=== PATIENT | female | born 1945 | race Caucasian/White ===

== ENCOUNTER 2021-05-08 23:17 | Emergency (ER) | payer MEDICARE, OTHER ==
[~2021-05-08] VITALS: Ht 172.7 cm; Wt 117.9 kg
[~2021-05-08 23:17] MED LIST: BONIVA150 MG PO; LASIX20 MG PO; LOSARTAN POTAS100 MG PO; METOPROLOL SUCC50 MG PO; POTASSIUM CHLO10 MEQ PO; TRIAMTERENE-HC1 EAC1 PO; TYLENOL EXTRA500 MG PO
[2021-05-08] MEDS ORDERED: METOPROLOL SUC100 MG PO (23:33)
[2021-05-08] MEDS ORDERED: FUROSEMIDE20 MG PO (23:33)
[2021-05-08] MEDS ORDERED: SPIRONOLACTONE25 MG PO (23:34)
[2021-05-08] MEDS ORDERED: ALBUTEROL2.5 MG/3 M INH (23:35)
[2021-05-08] MEDS ORDERED: VITAMIN D3125 MC1 PO (23:36)
[2021-05-09] MEDS ORDERED: DOXYCYCLINE HY100 MG PO (01:58)
[2021-05-09] MEDS ORDERED: PREDNISONE20 MG PO (01:58)
== END 2021-05-09 02:19 | disposition home or self-care (01) ==
LOC: ED 23:17
DX: J44.1 Chronic obstructive pulmonary disease with (acute) exacerbation (principal); Z20.822 Contact with and (suspected) exposure to COVID-19; I10 Essential (primary) hypertension; F17.200 Nicotine dependence, unspecified, uncomplicated; Z88.8 Allergy status to other drugs, medicaments and biological substances; Z79.899 Other long term (current) drug therapy
CPT/HCPCS: 71045; 94640; 99285-25; C9803; J7512; U0003